=== PATIENT | female | born 1940 | race Caucasian/White ===

== ENCOUNTER → 2020-12-05 | Outpatient (CLI) | payer MEDICARE, OTHER ==
[~2020-12-05] MED LIST: AMLODIPINE BESY10 MG PO; ASPIRIN EC81 MG PO; ATORVASTATIN CA20 MG PO; CLOPIDOGREL75 MG PO; CONZIP100 MG PO; FAMOTIDINE20 MG PO; FLONASE 0.05% N16 GM; LIPITOR TAB 2020 MG PO; LOPRESSOR 25 MG25 MG PO; LOPRESSOR 50 MG50 MG PO; MICROZIDE12.5 MG PO; NITROGLYCERIN0.4 MG SL; NORVASC 5 MG TAB5 MG PO; POLYETHYLENE GL17 GM PO; TRAMADOL HCL50 MG PO
[2020-12-05 10:54] LABS: HEMOGLOBIN 13.1 gm/dl (12.3-15.3); RED BLOOD COUNT 4.44 M/UL (4.00-5.10); WHITE BLOOD COUNT 7.4 K/UL (4.5-11.0)
== END ==
LOC: CT 10:00
PROVIDERS: Internal Medicine Hematology & Oncology
DX: C65.1 Malignant neoplasm of right renal pelvis (principal); C78.00 Secondary malignant neoplasm of unspecified lung; I70.90 Unspecified atherosclerosis; I71.4 Abdominal aortic aneurysm, without rupture; K43.9 Ventral hernia without obstruction or gangrene; M48.55XA Collapsed vertebra, not elsewhere classified, thoracolumbar region, initial encounter for fracture
CPT/HCPCS: 36415; 71250; 80053; 83615; 85027

== ENCOUNTER → 2021-05-29 | Outpatient (CLI) | payer MEDICARE, OTHER | LOC: EXRD 13:10 | DX: I73.9 Peripheral vascular disease, unspecified (principal) | CPT/HCPCS: 93925 ==

== ENCOUNTER → 2021-06-08 | Outpatient (CLI) | payer MEDICARE, OTHER ==
[2021-06-08 09:16] LABS: HEMOGLOBIN 14.3 gm/dl (12.3-15.3); RED BLOOD COUNT 4.72 M/UL (4.00-5.10); WHITE BLOOD COUNT 7.8 K/UL (4.5-11.0)
== END ==
LOC: CT 08:25
PROVIDERS: Internal Medicine Hematology & Oncology
DX: C65.1 Malignant neoplasm of right renal pelvis (principal); C78.00 Secondary malignant neoplasm of unspecified lung; R91.8 Other nonspecific abnormal finding of lung field; Z90.5 Acquired absence of kidney; K43.9 Ventral hernia without obstruction or gangrene; M48.55XA Collapsed vertebra, not elsewhere classified, thoracolumbar region, initial encounter for fracture; I70.0 Atherosclerosis of aorta; I71.4 Abdominal aortic aneurysm, without rupture
CPT/HCPCS: 36415; 71250; 80053; 83615; 85025

== ENCOUNTER → 2021-06-28 | Outpatient (CLI) | payer MEDICARE, OTHER | LOC: CT 10:16 | DX: I73.9 Peripheral vascular disease, unspecified (principal); R91.8 Other nonspecific abnormal finding of lung field | CPT/HCPCS: 75635; Q9965; Q9967 ==

== ENCOUNTER 2021-11-14 16:30 | Emergency (ER) | payer MEDICARE, OTHER ==
[2021-11-14 19:30] LABS: HEMOGLOBIN 9.7 gm/dl (12.3-15.3); RED BLOOD COUNT 3.23 M/UL (4.00-5.10); WHITE BLOOD COUNT 7.2 K/UL (4.5-11.0)
[2021-11-14] MEDS ORDERED: [UNRECOGNIZED DRUG - REMARK] (20:17)
[2021-11-14] MEDS ORDERED: [UNRECOGNIZED DRUG - REMARK] (20:17)
== END 2021-11-14 20:45 | disposition home or self-care (01) ==
LOC: ER1 16:30
PROVIDERS: Family Medicine
DX: M79.89 Other specified soft tissue disorders (principal); J44.9 Chronic obstructive pulmonary disease, unspecified; I13.0 Hypertensive heart and chronic kidney disease with heart failure and stage 1 through stage 4 chronic kidney disease, or unspecified chronic kidney disease; N18.9 Chronic kidney disease, unspecified; Z79.01 Long term (current) use of anticoagulants
CPT/HCPCS: 36415; 80048; 85025; 86140; 93005; 93926; 93971; 99284

== ENCOUNTER → 2021-11-27 | Outpatient (CLI) | payer MEDICARE, OTHER ==
[~2021-11-27] MED LIST changes: +[UNRECOGNIZED DRUG - REMARK]; +[UNRECOGNIZED DRUG - REMARK]
== END ==
LOC: WCC 07:20
DX: T81.42XA Infection following a procedure, deep incisional surgical site, initial encounter (principal); I10 Essential (primary) hypertension; I25.10 Atherosclerotic heart disease of native coronary artery without angina pectoris; I73.9 Peripheral vascular disease, unspecified; G40.89 Other seizures; I25.2 Old myocardial infarction; Z79.02 Long term (current) use of antithrombotics/antiplatelets; Z95.828 Presence of other vascular implants and grafts; Z88.5 Allergy status to narcotic agent; Z87.891 Personal history of nicotine dependence; Y83.2 Surgical operation with anastomosis, bypass or graft as the cause of abnormal reaction of the patient, or of later complication, without mention of misadventure at the time of the procedure; Y92.9 Unspecified place or not applicable

== ENCOUNTER → 2021-12-05 | Outpatient (CLI) | payer MEDICARE, OTHER | LOC: WCC 07:45 | DX: T81.42XA Infection following a procedure, deep incisional surgical site, initial encounter (principal); I25.10 Atherosclerotic heart disease of native coronary artery without angina pectoris; I10 Essential (primary) hypertension; I73.9 Peripheral vascular disease, unspecified; G40.89 Other seizures; Z88.5 Allergy status to narcotic agent; Z79.02 Long term (current) use of antithrombotics/antiplatelets ==

== ENCOUNTER → 2021-12-12 | Outpatient (CLI) | payer MEDICARE, OTHER | LOC: WCC 07:32 | DX: S71.102A Unspecified open wound, left thigh, initial encounter (principal); T81.42XA Infection following a procedure, deep incisional surgical site, initial encounter; I10 Essential (primary) hypertension; I25.10 Atherosclerotic heart disease of native coronary artery without angina pectoris; I73.9 Peripheral vascular disease, unspecified; G40.89 Other seizures; Z79.02 Long term (current) use of antithrombotics/antiplatelets ==

== ENCOUNTER → 2021-12-26 | Outpatient (CLI) | payer MEDICARE, OTHER | END | disposition home or self-care (01) | LOC: WCC 07:11 | DX: T81.89XA Other complications of procedures, not elsewhere classified, initial encounter (principal); I10 Essential (primary) hypertension; I73.9 Peripheral vascular disease, unspecified; I25.10 Atherosclerotic heart disease of native coronary artery without angina pectoris; D64.9 Anemia, unspecified; G40.89 Other seizures; Z79.02 Long term (current) use of antithrombotics/antiplatelets ==

== ENCOUNTER → 2021-12-27 | Outpatient (CLI) | payer MEDICARE, OTHER | LOC: CT 12-11 09:00 | DX: C65.1 Malignant neoplasm of right renal pelvis (principal); C78.00 Secondary malignant neoplasm of unspecified lung; R91.8 Other nonspecific abnormal finding of lung field | CPT/HCPCS: 71250 ==

== ENCOUNTER → 2022-01-09 | Outpatient (CLI) | payer MEDICARE, OTHER | END | disposition home or self-care (01) | LOC: WCC 07:35 | DX: T81.89XA Other complications of procedures, not elsewhere classified, initial encounter (principal); I10 Essential (primary) hypertension; I25.10 Atherosclerotic heart disease of native coronary artery without angina pectoris; I73.9 Peripheral vascular disease, unspecified; G40.89 Other seizures; Z79.01 Long term (current) use of anticoagulants; Z79.82 Long term (current) use of aspirin ==

== ENCOUNTER → 2022-01-23 | Outpatient (CLI) | payer MEDICARE, OTHER | LOC: WCC 07:38 | DX: T81.42XD Infection following a procedure, deep incisional surgical site, subsequent encounter (principal); I25.10 Atherosclerotic heart disease of native coronary artery without angina pectoris; I73.9 Peripheral vascular disease, unspecified; I10 Essential (primary) hypertension; R56.9 Unspecified convulsions; I25.2 Old myocardial infarction | CPT/HCPCS: G0463 ==

== ENCOUNTER 2022-06-05 18:18 | Inpatient (IN) | payer MEDICARE, OTHER ==
[~2022-06-05] VITALS: Ht 167.6 cm; Wt 74.8 kg
[2022-06-05 19:44] LABS: HEMOGLOBIN 13.8 gm/dl (12.3-15.3); RED BLOOD COUNT 4.66 M/UL (4.00-5.10); WHITE BLOOD COUNT 11.1 K/UL (4.5-11.0)
[2022-06-06 06:40] LABS: HEMOGLOBIN 12.9 gm/dl (12.3-15.3); RED BLOOD COUNT 4.43 M/UL (4.00-5.10); WHITE BLOOD COUNT 12.1 K/UL (4.5-11.0)
[2022-06-06] MEDS ORDERED: HYDROCHLOROTH12.5 MG PO (10:34)
[2022-06-06] MEDS ORDERED: KLOR-CON-EF 2525 MEQ PO (10:35)
[2022-06-06] MEDS ORDERED: PLAVIX75 MG PO (10:35)
[2022-06-06] MEDS ORDERED: STOOL SOFTENER100 MG PO (10:36)
[2022-06-06] MEDS ORDERED: BIOTIN2500 MCG PO (10:36)
[2022-06-06] MEDS ORDERED: ZINC50 MG PO (10:37)
[2022-06-06] MEDS ORDERED: NITROGLYCERIN0.4 MG SL (10:39)
[2022-06-06] MEDS ORDERED: LOSARTAN POTASS25 MG PO (10:42)
[2022-06-07 03:51] LABS: WHITE BLOOD COUNT 13.4 K/UL (4.5-11.0)
[2022-06-07 03:54] LABS: HEMOGLOBIN 10.4 gm/dl (12.3-15.3); RED BLOOD COUNT 3.54 M/UL (4.00-5.10)
[2022-06-08 04:31] LABS: HEMOGLOBIN 8.9 gm/dl (12.3-15.3)
[2022-06-08 04:46] LABS: RED BLOOD COUNT 2.96 M/UL (4.00-5.10); WHITE BLOOD COUNT 9.2 K/UL (4.5-11.0)
[2022-06-08] MEDS ORDERED: ACETAMINOPHEN500 MG PO (11:37)
[2022-06-08] MEDS ORDERED: ENOXAPARIN40 MG/0.4 SC (11:37)
[2022-06-08] MEDS ORDERED: FERROUS SULFAT325 M2 PO (11:37)
[2022-06-09 05:39] LABS: HEMOGLOBIN 9.7 gm/dl (12.3-15.3); WHITE BLOOD COUNT 8.6 K/UL (4.5-11.0)
[2022-06-09 05:40] LABS: RED BLOOD COUNT 3.3 M/UL (4.00-5.10)
[2022-06-10 04:33] LABS: HEMOGLOBIN 9.5 gm/dl (12.3-15.3); RED BLOOD COUNT 3.16 M/UL (4.00-5.10); WHITE BLOOD COUNT 9.7 K/UL (4.5-11.0)
[2022-06-11 05:14] LABS: HEMOGLOBIN 9.2 gm/dl (12.3-15.3); RED BLOOD COUNT 3.11 M/UL (4.00-5.10)
--- NOTE | 2022-06-11 21:00 | NUR ---
1 soap suds enema given at this time. Will continue to monitor for bowel movement results
[2022-06-12 03:50] LABS: HEMOGLOBIN 10.1 gm/dl (12.3-15.3)
[2022-06-12 04:01] LABS: RED BLOOD COUNT 3.43 M/UL (4.00-5.10); WHITE BLOOD COUNT 13.2 K/UL (4.5-11.0)
== END 2022-06-12 17:40 | DRG 481 ==
LOC: ER1 18:18 → CDU 20:41 → MED SURG 4 20:41 → CCU 20:41 → MED SURG 4 22:56 → CCU 06-06 16:28
PROVIDERS: Internal Medicine; Orthopaedic Surgery; Physician Assistant; ADMIT Internal Medicine
PROC: 0QS704Z Reposition Left Upper Femur with Internal Fixation Device, Open Approach (ICD-10-PCS; 2022-06-06)
PROC: B24BZZZ Ultrasonography of Heart with Aorta (ICD-10-PCS; principal; 2022-06-06 09:00)
DX: S72.142A Displaced intertrochanteric fracture of left femur, initial encounter for closed fracture (principal); C78.01 Secondary malignant neoplasm of right lung; Z20.822 Contact with and (suspected) exposure to COVID-19; C78.02 Secondary malignant neoplasm of left lung; I47.1 Supraventricular tachycardia; N17.9 Acute kidney failure, unspecified; I25.10 Atherosclerotic heart disease of native coronary artery without angina pectoris; N18.9 Chronic kidney disease, unspecified; K21.9 Gastro-esophageal reflux disease without esophagitis; K59.00 Constipation, unspecified; I12.9 Hypertensive chronic kidney disease with stage 1 through stage 4 chronic kidney disease, or unspecified chronic kidney disease; I73.9 Peripheral vascular disease, unspecified; S40.012A Contusion of left shoulder, initial encounter; W01.0XXA Fall on same level from slipping, tripping and stumbling without subsequent striking against object, initial encounter; D50.9 Iron deficiency anemia, unspecified; Z95.1 Presence of aortocoronary bypass graft; Z95.5 Presence of coronary angioplasty implant and graft; Z85.53 Personal history of malignant neoplasm of renal pelvis; Z82.49 Family history of ischemic heart disease and other diseases of the circulatory system; Z88.8 Allergy status to other drugs, medicaments and biological substances; Z88.6 Allergy status to analgesic agent; I25.2 Old myocardial infarction
CPT/HCPCS: ECHO; 36415; 71045; 73030; 73502; 74018; 76000; 80048; 80053; 81001; 82550; 82553; 82962; 83036; 83540; 83550; 83735; 84484; 85025; 85027; 85610; 85730; 86850; 86900; 86901; 87086; 93005; 93306; 96374; 96375; 97110; 97110-GP-CQ; 97116-GP-CQ; 97162; 97166; 97530; 97530-GP-CQ; 99285; C1713; J0360; J0690; J1100; J1650; J1756; J1885; J2001; J2250; J2405; J2704; J2710; J2795; U0002